=== PATIENT | female | born 1985 | race American Indian/Alaskan Native ===

== ENCOUNTER 2020-08-06 08:02 | Emergency (ER) | payer SELFPAY ==
[2020-08-06 08:30] LABS: Bilirubin,Urine NEG (Negative); Blood,Urine MOD (Negative); Color,Urine Yellow (Yellow); Mucus,Urine 3+ /HPF
--- NOTE | 2020-08-06 08:35 | Emergency Department Report ---
ED Abdominal Pain HPI - General Chief Complaint: Abdominal Pain Stated Complaint: LOWER RT SIDE PAIN Time Seen by Provider: 08/06/20 08:23 Source: patient Mode of arrival: Ambulatory Limitations: No Limitations - History of Present Illness Initial Comments: This is a 35-year-old female with past medical history of endometriosis, uterine fibroids who presents the ER with chief complaint of right-sided flank pain that radiates to the right lower quadrant that has gradually been worsening over the past 6 days. She reports she has had similar pain in the past but has never been this severe. She reports the pain is a 9 out of 10 in severity denies any aggravating or alleviating factors. She has a past surgical history of an appendectomy. She is not currently on any medications but has been taking [id number] Tylenol. She has allergies to penicillin and Levaquin. She denies any associated fever, chills, night sweats, headache, dizziness, blurry vision, nausea, vomiting, diarrhea, chest pain, shortness of breath, weakness or any other associated symptoms. She is currently on her menstrual cycle. She denies any concern about any exposure to STDs and denies any recent unprotected sexual encounters. - Related Data Previous Rx's Medication Instructions Recorded Last Taken Type Ibuprofen [Motrin 800 MG tab] 800 mg PO Q8HR #30 tablet 08/06/20 Unknown Rx Ondansetron [Zofran Odt] 4 mg PO Q8HR #30 tab.rapdis 08/06/20 Unknown Rx traMADoL [Ultram 50 MG tab] 50 mg PO Q4HR PRN #12 tablet 08/06/20 Unknown Rx Allergies Allergy/AdvReac Type Severity Reaction Status Date / Time levofloxacin [From Levaquin] Allergy Swelling Verified 08/06/20 08:05 Penicillins Allergy Hives Verified 08/06/20 08:05 ED Review of Systems ROS: Stated complaint: LOWER RT SIDE PAIN Other details as noted in HPI Comment: All other systems reviewed and negative Constitutional: denies: chills, fever Eyes: denies: eye pain, eye discharge, vision change ENT: denies: ear pain, throat pain Respiratory: denies: cough, shortness of breath, wheezing Cardiovascular: denies: chest pain, palpitations Endocrine: no symptoms reported Gastrointestinal: abdominal pain. denies: nausea, diarrhea Genitourinary: denies: urgency, dysuria, discharge Musculoskeletal: denies: back pain, joint swelling, arthralgia Skin: denies: rash, lesions Neurological: denies: headache, weakness, paresthesias Psychiatric: denies: anxiety, depression Hematological/Lymphatic: denies: easy bleeding, easy bruising ED Past Medical Hx - Past Medical History Previous Medical History?: No - Surgical History Hx Appendectomy: Yes - Social History Smoking Status: Current Every Day Smoker Substance Use Type: None - Medications Home Medications: Home Medications Medication Instructions Recorded Confirmed Last Taken Type Ibuprofen [Motrin 800 MG tab] 800 mg PO Q8HR #30 tablet 08/06/20 Unknown Rx Ondansetron [Zofran Odt] 4 mg PO Q8HR #30 tab.rapdis 08/06/20 Unknown Rx traMADoL [Ultram 50 MG tab] 50 mg PO Q4HR PRN #12 tablet 08/06/20 Unknown Rx ED Physical Exam - General Limitations: No Limitations General appearance: alert, in no apparent distress - Head Head exam: Present: atraumatic, normocephalic - Eye Eye exam: Present: normal appearance, PERRL, EOMI Pupils: Present: normal accommodation - ENT ENT exam: Present: normal exam, normal orophraynx, mucous membranes moist - Neck Neck exam: Present: normal inspection, full ROM. Absent: tenderness, meningismus - Respiratory Respiratory exam: Present: normal lung sounds bilaterally. Absent: respiratory distress, wheezes, rales, rhonchi, stridor, chest wall tenderness - Cardiovascular Cardiovascular Exam: Present: regular rate, normal rhythm, normal heart sounds. Absent: systolic murmur, diastolic murmur, rubs, gallop - GI/Abdominal GI/Abdominal exam: Present: soft, distended, tenderness (Tenderness palpation of the right lower pelvic area. CVA tenderness on the right. No rebound or guarding. Abdomen is soft), normal bowel sounds. Absent: guarding, rebound, rigid - Extremities Exam Extremities exam: Present: normal inspection, full ROM, normal capillary refill. Absent: tenderness - Back Exam Back exam: Present: normal inspection, full ROM, CVA tenderness (R). Absent: tenderness, CVA tenderness (L) - Neurological Exam Neurological exam: Present: alert, oriented X3, normal gait - Psychiatric Psychiatric exam: Present: normal affect, normal mood - Skin Skin exam: Present: warm, dry, intact, normal color. Absent: rash ED Course Vital Signs 08/06/20 08:05 Temperature 98 F Pulse Rate 67 Respiratory 20 Rate Blood Pressure 123/85 O2 Sat by Pulse 100 Oximetry - Reevaluation(s) Reevaluation #1: 08/06/20 11:58 Patient was given IV Toradol and reported significant relief of her symptoms. test was negative. Ultrasound shows a large uterine fibroid. Work-up was otherwise relatively benign. Patient be given outpatient [employer]PECTOR follow-up, anti-inflammatories, pain medication and nausea medication recommended return to the emergency department immediately if develops any change or worsening sy mptoms. She verbalized understand the diagnosis, treatment plan and follow-up instructions and all of her questions were answered. ED Medical Decision Making - Lab Data Result diagrams: 08/06/20 09:37 08/06/20 09:37 Lab Results 08/06/20 08/06/20 08/06/20 Range/Units 09:28 09:37 09:37 WBC 10.2 (4.5-11.0) K/mm3 RBC 4.70 (3.65-5.03) M/mm3 Hgb 14.4 H (10.1-14.3) gm/dl Hct 42.8 (30.3-42.9) % MCV 91 (79-97) fl MCH 31 (28-32) pg MCHC 34 (30-34) % RDW 13.7 (13.2-15.2) % Plt Count 236 (140-440) K/mm3 Lymph % (Auto) 21.3 (13.4-35.0) % [place] % (Auto) 5.5 (0.0-7.3) % Eos % (Auto) 1.8 (0.0-4.3) % Baso % (Auto) 0.7 (0.0-1.8) % Lymph # (Auto) 2.2 (1.2-5.4) K/mm3 [place] # (Auto) 0.6 (0.0-0.8) K/mm3 Eos # (Auto) 0.2 (0.0-0.4) K/mm3 Baso # (Auto) 0.1 (0.0-0.1) K/mm3 Seg Neutrophils % 70.7 H (40.0-70.0) % Seg Neutrophils # 7.2 (1.8-7.7) K/mm3 Sodium 137 (137-145) mmol/L Potassium 4.5 (3.6-5.0) mmol/L Chloride 104.2 (98-107) mmol/L Carbon Dioxide 24 (22-30) mmol/L Anion Gap 13 mmol/L BUN 8 (7-17) mg/dL Creatinine 0.6 (0.6-1.2) mg/dL Estimated GFR > 60 ml/min BUN/Creatinine Ratio 13 % Glucose 85 (65-100) mg/dL Calcium 9.2 (8.4-10.2) mg/dL Total Bilirubin 0.70 (0.1-1.2) mg/dL AST 27 (5-40) units/L ALT 16 (7-56) units/L Alkaline Phosphatase 79 (35-129) units/L Total Protein 7.1 (6.3-8.2) g/dL Albumin 4.0 (3.9-5) g/dL Albumin/Globulin Ratio 1.3 % Urine Color (Yellow) Urine Turbidity (Clear) Urine pH (5.0-7.0) Ur Specific [place] (1.003-1.030) Urine Protein (Negative) mg/dL Urine Glucose (UA) (Negative) mg/dL Urine Ketones (Negative) mg/dL Urine Blood (Negative) Urine Nitrite (Negative) Urine Bilirubin (Negative) Urine Urobilinogen (<2.0) mg/dL Ur Leukocyte Esterase (Negative) Urine WBC (Auto) (0.0-6.0) /HPF Urine RBC (Auto) (0.0-6.0) /HPF U Epithel Cells (Auto) (0-13.0) /HPF Urine Mucus /HPF Urine HCG, Qual Negative (Negative) 08/06/20 Range/Units Unknown WBC (4.5-11.0) K/mm3 RBC (3.65-5.03) M/mm3 Hgb (10.1-14.3) gm/dl Hct (30.3-42.9) % MCV (79-97) fl MCH (28-32) pg MCHC (30-34) % RDW (13.2-15.2) % Plt Count (140-440) K/mm3 Lymph % (Auto) (13.4-35.0) % [place] % (Auto) (0.0-7.3) % Eos % (Auto) (0.0-4.3) % Baso % (Auto) (0.0-1.8) % Lymph # (Auto) (1.2-5.4) K/mm3 [place] # (Auto) (0.0-0.8) K/mm3 Eos # (Auto) (0.0-0.4) K/mm3 Baso # (Auto) (0.0-0.1) K/mm3 Seg Neutrophils % (40.0-70.0) % Seg Neutrophils # (1.8-7.7) K/mm3 Sodium (137-145) mmol/L Potassium (3.6-5.0) mmol/L Chloride (98-107) mmol/L Carbon Dioxide (22-30) mmol/L Anion Gap mmol/L BUN (7-17) mg/dL Creatinine (0.6-1.2) mg/dL Estimated GFR ml/min BUN/Creatinine Ratio % Glucose (65-100) mg/dL Calcium (8.4-10.2) mg/dL Total Bilirubin (0.1-1.2) mg/dL AST (5-40) units/L ALT (7-56) units/L Alkaline Phosphatase (35-129) units/L Total Protein (6.3-8.2) g/dL Albumin (3.9-5) g/dL Albumin/Globulin Ratio % Urine Color Yellow (Yellow) Urine Turbidity Clear (Clear) Urine pH 6.0 (5.0-7.0) Ur Specific [place] 1.024 (1.003-1.030) Urine Protein 30 mg/dl (Negative) mg/dL Urine Glucose (UA) Neg (Negative) mg/dL Urine Ketones Tr (Negative) mg/dL Urine Blood Mod (Negative) Urine Nitrite Neg (Negative) Urine Bilirubin Neg (Negative) Urine Urobilinogen 4.0 (<2.0) mg/dL Ur Leukocyte Esterase Neg (Negative) Urine WBC (Auto) 1.0 (0.0-6.0) /HPF Urine RBC (Auto) 81.0 (0.0-6.0) /HPF U Epithel Cells (Auto) 3.0 (0-13.0) /HPF Urine Mucus 3+ /HPF Urine HCG, Qual (Negative) - Radiology Data Radiology results: report reviewed Ordering Physician: CHANDRA MIRANDA Date of Service: 08/06/20 Procedure(s): US transvaginal Accession Number(s): [id number] cc: CHANDRA MIRANDA Transvaginal pelvic ultrasound Transabdominal pelvic ultrasound INDICATION: Right lower quadrant pain FINDINGS: There is a prominent fibroid along the posterior aspect of the uterus near the fundus measuring 4.2 x 3.9 x 4.1 cm. Endometrium measures 3 mm. Right ovary measures 2.9 x 2.3 x 3.0 cm. Left ovary measures 1.8 x 1.7 x 1.8 cm. Mild increased flow within the uterine fibroid. IMPRESSION: Uterine fibroid. Signer Name: Danny King MD Signed: 08/06/2020 9:32 AM Workstation Name: [id number] Transcribed By: HARRY Dictated By: MAULIK KING MD Electronically Authenticated By: MAULIK KING MD Signed Date/Time: 08/06/20 0932 - Medical Decision Making Patient nontoxic in no acute distress. Vital signs are stable. She is hemodynamically stable and in no acute distress. Imaging consistent with ut erine fibroid. Pain medication improves her symptoms. Recommend outpatient follow-up with an [employer]ATCH [employer] INSPECTOR return to the emerge department any change or worsening symptoms. She did have some blood in her urine however she is currently menstruating. I am less concerned about a kidney stone at this time due to the lack of sudden onset of symptoms or colicky symptoms and the fact that her symptoms have been more gradual with onset of her menstrual cycle makes me think this is more of a pelvic related pain. Patient declined pelvic examination is not concerned about any exposure to STDs making my suspicion for PID or TOA less likely. - Differential Diagnosis Uterine fibroid, endometrioma, ovarian cyst, dysmenorrhea Critical care attestation.: If time is entered above; I have spent that time in minutes in the direct care of this critically ill patient, excluding procedure time. ED Disposition Clinical Impression: Dysmenorrhea Uterine fibroid Qualifiers: Uterine leiomyoma location: unspecified location Qualified Code(s): D25.9 - Leiomyoma of uterus, unspecified Disposition: DC- TO HOME OR SELFCARE Is pt being admited?: No Condition: Stable Instructions: Abdominal Pain (ED), Uterine Fibroids, Nuse-ct-[id number] Prescriptions: Ibuprofen [Motrin 800 MG tab] 800 mg PO Q8HR #30 tablet traMADoL [Ultram 50 MG tab] 50 mg PO Q4HR PRN #12 tablet PRN Reason: Pain Ondansetron [Zofran Odt] 4 mg PO Q8HR #30 tab.rapdis Referrals: PRIMARY CARE, [Primary Care Provider] - 3-5 Days JESSIKA HURTADO MD [Staff Physician] - 3-5 Days Forms: Work/School Release Form(ED) Time of Disposition: 12:00
--- NOTE | 2020-08-06 09:37 | Ultrasound Report ---
Transvaginal pelvic ultrasound Transabdominal pelvic ultrasound INDICATION: Right lower quadrant pain FINDINGS: There is a prominent fibroid along the posterior aspect of the uterus near the fundus measu ring 4.2 x 3.9 x 4.1 cm. Endometrium measures 3 mm. Right ovary measures 2.9 x 2.3 x 3.0 cm. Left ova ry measures 1.8 x 1.7 x 1.8 cm. Mild increased flow within the uterine fibroid. IMPRESSION: Uterine fibroid. Signer Name: Danny King MD Signed: 08/06/2020 9:32 AM Workstation Name: [id number]
[2020-08-06 09:59] LABS: Basophils # (Auto) 0.1 K/mm3 (0.0-0.1); Basophils % (Auto) 0.7 % (0.0-1.8); Eosinophils # (Auto) 0.2 K/mm3 (0.0-0.4); Eosinophils % (Auto) 1.8 % (0.0-4.3); Hematocrit 42.8 % (30.3-42.9); Hemoglobin 14.4 gm/dl (10.1-14.3); Lymphocytes # (Auto) 2.2 K/mm3 (1.2-5.4); Lymphocytes % (Auto) 21.3 % (13.4-35.0); Mean Corpuscular HGB Conc 34 % (30-34); Mean Corpuscular Volume 91 fl (79-97); Monocytes # (Auto) 0.6 K/mm3 (0.0-0.8); Monocytes % (Auto) 5.5 % (0.0-7.3); Platelet Count 236 K/mm3 (140-440); Red Cell Distribution Width 13.7 % (13.2-15.2)
[2020-08-06 10:20] LABS: Alanine Aminotransferase 16 units/L (7-56); Blood Urea Nitrogen 8 mg/dL (7-17); Calcium 9.2 mg/dL (8.4-10.2); Hemolysis Index 77
[2020-08-06 10:21] LABS: BUN/Creatinine Ratio 13
[2020-08-06 10:50] LABS: HCG Qualitative,Urine Negative (Negative)
[2020-08-06] MEDS ORDERED: KETOROLAC 30 MG/1 ML INJ IV ONE (10:50)
[2020-08-06 12:16] VITALS: BP 137/83
== END 2020-08-06 12:17 | disposition home or self-care (01) ==
LOC: ED 08:02
DX: D25.9 Leiomyoma of uterus, unspecified (principal); N94.6 Dysmenorrhea, unspecified; F17.200 Nicotine dependence, unspecified, uncomplicated; Z79.899 Other long term (current) drug therapy; Z88.0 Allergy status to penicillin; Z88.8 Allergy status to other drugs, medicaments and biological substances; Z90.49 Acquired absence of other specified parts of digestive tract
CPT/HCPCS: 36415; 76830; 76856; 80053; 81001; 81025; 85025; 96374; 99284; J1885

== ENCOUNTER 2020-08-20 11:45 | Emergency (ER) | payer SELFPAY ==
[2020-08-20 11:59] VITALS: BP 119/82
--- NOTE | 2020-08-20 12:34 | Event Note ---
ED Screening Note Date of service: 08/20/20 Time: 12:32 ED Screening Note: 35-year-old female patient presents to the emergency department with complaints of dizziness and lightheadedness starting 2 days ago. Patient states she experienced a syncopal episode while she was at work. She was evaluated at another local emergency department and given 2 L of IV fluids. Diagnostic work- up was unremarkable and she was discharged home to rest/hydrate. She stayed home yesterday and follow discharge instructions. However, when she attempted to return to work today, she began to experience prodromal symptoms again. No preceding fall, trauma, or injury. No family history of sudden cardiac . Patient also reports lower back/rectal/right-sided abdominal pain radiating into her right leg; this has been ongoing for >1 month. States the pain is no different today than usual. Review past medical records indicates she underwent sonographic evaluation at our facility last month and was diagnosed with uterine fibroids. Last menstrual period 08/09/2020. General: Awake, appropriately interactive, no acute distress. Neck: Supple. Full range of motion intact. Cardiovascular: Normal peripheral perfusion. Pulmonary: No respiratory distress. Patient is speaking normally without use of accessory muscles. Skin: No apparent rashes or lesions. Neurological: No facial asymmetry. Speech is clear. Follows commands. Patient is alert and oriented. Musculoskeletal: Moves all four extremities spontaneously with normal range of motion. Psych: Cooperative. Appropriate mood and affect. I have greeted and performed a focused rapid initial assessment of this patient. A comprehensive ED assessment and evaluation of the patient, analysis of all test results, and completion of the medical decision-making process will be conducted by additional ED providers. This initial assessment/diagnostic orders/clinical plan/treatment(s) is/are subject to change based on patients health status, clinical progression and re-assessment. Further treatment and workup at subsequent clinical provider's discretion. Patient/guardian urged not to elope from the ED as their condition may be serious if not clinically assessed and managed.
[2020-08-20] MEDS ORDERED: MECLIZINE 25 MG TAB PO ONE (13:16)
--- NOTE | 2020-08-20 13:16 | Emergency Department Report ---
ED Dizziness HPI - General Chief Complaint: Rectal Pain Stated Complaint: DIZZY/WEAK/RT LEG/HIP PAIN Time Seen by Provider: 08/20/20 12:56 Source: patient Mode of arrival: Ambulatory Limitations: No Limitations - History of Present Illness Initial Comments: Patient is a 35-year-old female that comes to the ER today from work after having a near syncopal spell. She states that she did have a syncopal spell on Tuesday and was taken to [facility]. She states that she had blood work urine work EKGs and they told her everything was normal that she just needed to hydrate well. They did not scan her head. Patient denies any trauma or fall with the syncopal spell. She was at [email or web address] working again today and had a near syncopal spell. It concerned her team manager so they sent her here to the emergency room. Patient is ambulatory to the ER in no acute distress. Patient denies any chest pain or shortness of breath-or palpitations. She denies fever or chills. She denies any exposure to COVID-19. Patient denies any alcohol or drugs to provider. However EMR indicates she does use alcohol and marijuana.. She does endorse cigarette smoking. Last menstrual period 320 Patient denied any leg pain on my exam. She is ambulatory without difficulty. Complaint: dizziness -: Sudden, days(s) Timing: sudden onset Description: "room spinning" History of Same: Yes History of Trauma: No Severity: mild Improves With: remaining still Worsens With: movement Associated Symptoms: denies other symptoms - Related Data Previous Rx's Medication Instructions Recorded Last Taken Type Meclizine [Antivert] 25 mg PO TID PRN #12 tablet 08/20/20 Unknown Rx Sulfamethoxazole/Trimethoprim 1 each PO BID #10 tablet 08/20/20 Unknown Rx [Bactrim DS TAB] Allergies Allergy/AdvReac Type Severity Reaction Status Date / Time levofloxacin [From Levaquin] Allergy Swelling Verified 08/06/20 08:05 Penicillins Allergy Hives Verified 08/06/20 08:05 ED Review of Systems ROS: Stated complaint: DIZZY/WEAK/RT LEG/HIP PAIN Other details as noted in HPI Comment: All other systems reviewed and negative ED Past Medical Hx - Past Medical History Previous Medical History?: Yes Additional medical history: Endometriosis - Surgical History Past Surgical History?: Yes Hx Appendectomy: Yes (appy) - Family History Family history: no significant - Social History Smoking Status: Current Every Day Smoker Substance Use Type: Alcohol, Marijuana - Medications Home Medications: Home Medications Medication Instructions Recorded Confirmed Last Taken Type Meclizine [Antivert] 25 mg PO TID PRN #12 tablet 08/20/20 Unknown Rx Sulfamethoxazole/Trimethoprim 1 each PO BID #10 tablet 08/20/20 Unknown Rx [Bactrim DS TAB] ED Physical Exam - General Limitations: No Limitations General appearance: alert, in no apparent distress - Head Head exam: Present: atraumatic, normocephalic - Eye Eye exam: Present: normal appearance Pupils: Present: other (Patient has dizziness with rapid head movement to the right and to the left. It is worse with movement to the left. Vertical nystagmus on exam. Minimal nausea. No vomiting.) - ENT ENT exam: Present: mucous membranes moist - Neck Neck exam: Present: normal inspection - Respiratory Respiratory exam: Present: normal lung sounds bilaterally. Absent: respiratory distress - Cardiovascular Cardiovascular Exam: Present: regular rate, normal rhythm. Absent: systolic murmur, diastolic murmur, rubs, gallop - GI/Abdominal GI/Abdominal exam: Present: soft, normal bowel sounds - Extremities Exam Extremities exam: Present: normal inspection - Back Exam Back exam: Present: normal inspection - Neurological Exam Neurological exam: Present: alert, oriented X3 - Psychiatric Psychiatric exam: Present: normal affect, normal mood - Skin Skin exam: Present: warm, dry, intact, normal color. Absent: rash ED Course Vital Signs 08/20/20 11:55 Temperature 98.8 F Pulse Rate 89 Respiratory 16 Rate Blood Pressure 119/82 O2 Sat by Pulse 99 Oximetry ED Medical Decision Making - Lab Data Result diagrams: 08/20/20 12:36 08/20/20 12:36 - Radiology Data Radiology results: report reviewed, image reviewed - Medical Decision Making Lab Results 08/20/20 08/20/20 08/20/20 Range/Units 12:36 12:36 Unknown WBC 11.0 (4.5-11.0) K/mm3 RBC 4.95 (3.65-5.03) M/mm3 Hgb 14.9 H (10.1-14.3) gm/dl Hct 45.5 H (30.3-42.9) % MCV 92 (79-97) fl MCH 30 (28-32) pg MCHC 33 (30-34) % RDW 13.8 (13.2-15.2) % Plt Count 250 (140-440) K/mm3 Lymph % (Auto) 24.6 (13.4-35.0) % [place] % (Auto) 5.8 (0.0-7.3) % Eos % (Auto) 1.1 (0.0-4.3) % Baso % (Auto) 0.4 (0.0-1.8) % Lymph # (Auto) 2.7 (1.2-5.4) K/mm3 [place] # (Auto) 0.6 (0.0-0.8) K/mm3 Eos # (Auto) 0.1 (0.0-0.4) K/mm3 Baso # (Auto) 0.0 (0.0-0.1) K/mm3 Seg Neutrophils % 68.1 (40.0-70.0) % Seg Neutrophils # 7.5 (1.8-7.7) K/mm3 Sodium 135 L (137-145) mmol/L Potassium 3.3 L (3.6-5.0) mmol/L Chloride 98.7 (98-107) mmol/L Carbon Dioxide 26 (22-30) mmol/L Anion Gap 14 mmol/L BUN 8 (7-17) mg/dL Creatinine 0.7 (0.6-1.2) mg/dL Estimated GFR > 60 ml/min BUN/Creatinine Ratio 11 % Glucose 79 (65-100) mg/dL Calcium 9.3 (8.4-10.2) mg/dL Magnesium 1.80 (1.7-2.3) mg/dL Total Bilirubin 0.60 (0.1-1.2) mg/dL AST 22 (5-40) units/L ALT 16 (7-56) units/L Alkaline Phosphatase 77 (35-129) units/L Total Protein 7.2 (6.3-8.2) g/dL Albumin 4.3 (3.9-5) g/dL Albumin/Globulin Ratio 1.5 % Urine Color [place] (Yellow) Urine Turbidity Cloudy (Clear) Urine pH 6.0 (5.0-7.0) Ur Specific [place] 1.024 (1.003-1.030) Urine Protein 100 mg/dl (Negative) mg/dL Urine Glucose (UA) Neg (Negative) mg/dL Urine Ketones 20 (Negative) mg/dL Urine Blood Neg (Negative) Urine Nitrite Neg (Negative) Ur Reducing Substances Not Reportable Urine Bilirubin Neg (Negative) Urine Ictotest Not Reportable Urine Urobilinogen 2.0 (<2.0) mg/dL Ur Leukocyte Esterase Tr (Negative) Urine WBC (Auto) 14.0 H (0.0-6.0) /HPF Urine RBC (Auto) 6.0 (0.0-6.0) /HPF U Epithel Cells (Auto) 46.0 H (0-13.0) /HPF Urine Mucus 3+ /HPF Urine HCG, Qual Negative (Negative) Vital Signs 08/20/20 11:55 Temperature 98.8 F Pulse Rate 89 Respiratory 16 Rate Blood Pressure 119/82 O2 Sat by Pulse 99 Oximetry Labs noted. EKG noted. Sinus rhythm. UA noted. Culture pending. Patient being started on Bactrim. Patient denies any vaginal discharge or dysuria. She denies suprapubic pain. She denies back pain. She has no CVA tenderness. I think this is an incidental finding. Patient given a dose of Antivert with Relief. Patient states that pollen does not normally aggravate her at this time a year. She denies ever being told she had vertigo before. I am able to replicate her dizziness with exam. CT of head. See report. Patient given potassium supplementation. Patient being discharged home with discharge plan of care. She verbalizes understanding of medications, activity diet and follow-up. - Differential Diagnosis ro intracerebral etio/trauma/vertigo Critical care attestation.: If time is entered above; I have spent that time in minutes in the direct care of this critically ill patient, excluding procedure time. ED Disposition Clinical Impression: UTI (urinary tract infection), Vertigo, Hypokalemia Disposition: DC-01 TO HOME OR SELFCARE Is pt being admited?: No Does the pt Need Aspirin: No Condition: Stable Instructions: Urinary Tract Infection, Adult, Dizziness, [id number] Additional Instructions: stay well hydrated meds as ordered FOLLOW UP WITH PCP IN 1 WEEK REFERRAL BELOW Eat foods rich in potassium Prescriptions: Meclizine [Antivert] 25 mg PO TID PRN #12 tablet PRN Reason: Vertigo Sulfamethoxazole/Trimethoprim [Bactrim DS TAB] 1 each PO BID #10 tablet Referrals: PRIMARY CAREMD [Primary Care Provider] - 3-5 Days JACOBY CONTRERAS MD [Staff Physician] - 3-5 Days Forms: Work/School Release Form(ED) Time of Disposition: 15:28
[2020-08-20 13:31] LABS: Alanine Aminotransferase 16 units/L (7-56); Albumin 4.3 g/dL (3.9-5); Blood Urea Nitrogen 8 mg/dL (7-17); Calcium 9.3 mg/dL (8.4-10.2); Hemolysis Index 7
[2020-08-20 13:44] LABS: Basophils % (Auto) 0.4 % (0.0-1.8); Eosinophils # (Auto) 0.1 K/mm3 (0.0-0.4); Eosinophils % (Auto) 1.1 % (0.0-4.3); Hematocrit 45.5 % (30.3-42.9); Hemoglobin 14.9 gm/dl (10.1-14.3); Lymphocytes # (Auto) 2.7 K/mm3 (1.2-5.4); Lymphocytes % (Auto) 24.6 % (13.4-35.0); Mean Corpuscular HGB Conc 33 % (30-34); Mean Corpuscular Volume 92 fl (79-97); Monocytes # (Auto) 0.6 K/mm3 (0.0-0.8); Monocytes % (Auto) 5.8 % (0.0-7.3); Platelet Count 250 K/mm3 (140-440); Red Blood Count 4.95 M/mm3 (3.65-5.03); Red Cell Distribution Width 13.8 % (13.2-15.2)
[2020-08-20 13:45] LABS: BUN/Creatinine Ratio 11
[2020-08-20 15:03] LABS: HCG Qualitative,Urine Negative (Negative)
[2020-08-20 15:06] LABS: Bilirubin,Urine NEG (Negative); Blood,Urine NEG (Negative); Color,Urine Amber (Yellow); Mucus,Urine 3+ /HPF
[2020-08-20] MEDS ORDERED: SULFAMETHOXAZOLE/TRIMETHOPRIM 800/160MG DS TAB PO ONE (15:26)
[2020-08-20] MEDS ORDERED: POTASSIUM CHLORIDE ER 20 MEQ TAB PO ONE (15:27)
--- NOTE | 2020-08-20 15:36 | Cat Scan Report ---
CT head/brain wo con INDICATION: dizzy. TECHNIQUE: Routine CT head. All CT scans at this location are performed using CT dose reduction for A YARITZA by means of automated exposure control. COMPARISON: None. FINDINGS: Intracranial: Cardoso-white matter differentiation is maintained. No intracranial hemorrhage. No extra a xial collection. No hydrocephalus. No herniation. Right greater than left downward descent of the cer ebellar tonsils beneath the foramen magnum. This measures up to 5 mm on the right. The morphology of the right subareolar tonsil appears mildly pointed. Sinuses: Paranasal sinuses and mastoid air cells are essentially clear. Orbits: Globes are intact. Calvarium: No acute fracture. IMPRESSION: 1. No acute intracranial abnormality. 2. 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 Signer Name: Don Lobo MD Signed: 08/20/2020 3:32 PM Workstation Name: [facility]At[facility]
== END 2020-08-20 15:53 | disposition home or self-care (01) ==
LOC: ED 11:45
DX: E87.6 Hypokalemia (principal); N39.0 Urinary tract infection, site not specified; R42 Dizziness and giddiness; F17.200 Nicotine dependence, unspecified, uncomplicated; F12.90 Cannabis use, unspecified, uncomplicated; Z79.899 Other long term (current) drug therapy; Z88.0 Allergy status to penicillin; Z88.8 Allergy status to other drugs, medicaments and biological substances; Z90.49 Acquired absence of other specified parts of digestive tract
CPT/HCPCS: 36415; 70450; 80053; 81001; 81025; 83735; 85025; 87076; 87086; 87186

== ENCOUNTER 2021-11-02 10:05 | Emergency (ER) | payer SELFPAY ==
[2021-11-02] MEDS ORDERED: ACETAMINOPHEN 500 MG TAB PO ONE (11:07)
[2021-11-02] MEDS ORDERED: FAMOTIDINE 20 MG TAB PO ONE (11:07)
[2021-11-02] MEDS ORDERED: ONDANSETRON 4 MG ODT TAB PO ONE (11:07)
[2021-11-02] MEDS ORDERED: SODIUM CHLORIDE 0.9% 1000 ML 1,000 ML IV ONE (11:22)
[2021-11-02] MEDS ORDERED: FAMOTIDINE 20 MG/2 ML INJ IV ONE (11:22)
[2021-11-02] MEDS ORDERED: ONDANSETRON 4 MG/2 ML INJ IV ONE (11:22)
[2021-11-02] MEDS ORDERED: MORPHINE 4 MG/1 ML INJ IV ONE (11:22)
[2021-11-02 11:54] LABS: Basophils # (Auto) 0.1 K/mm3 (0.0-0.1); Basophils % (Auto) 0.5 % (0.0-1.8); Eosinophils % (Auto) 0.3 % (0.0-4.3); Hemoglobin 14.7 gm/dl (10.1-14.3); Lymphocytes # (Auto) 1.8 K/mm3 (1.2-5.4); Lymphocytes % (Auto) 16.2 % (13.4-35.0); Mean Corpuscular HGB Conc 33 % (30-34); Mean Corpuscular Volume 92 fl (79-97); Monocytes # (Auto) 0.7 K/mm3 (0.0-0.8); Monocytes % (Auto) 6.3 % (0.0-7.3); Platelet Count 228 K/mm3 (140-440); Red Cell Distribution Width 13.7 % (13.2-15.2)
[2021-11-02 12:13] LABS: Alanine Aminotransferase 17 units/L (7-56); Albumin 4.1 g/dL (3.9-5); Blood Urea Nitrogen 11 mg/dL (7-17); Calcium 9.4 mg/dL (8.4-10.2); Hemolysis Index 54
[2021-11-02 12:16] LABS: BUN/Creatinine Ratio 16
[2021-11-02 14:27] LABS: HCG Qualitative,Urine Negative (Negative)
[2021-11-02 14:33] LABS: Color,Urine Amber (Yellow)
[2021-11-02 14:34] LABS: Bilirubin,Urine Small (Negative); Blood,Urine Large (Negative); PH,Urine 6.5 (5.0-7.0)
[2021-11-02 14:35] LABS: Urobilinogen,Urine < 2.0 mg/dL (<2.0)
[2021-11-02 14:39] LABS: Ictotest,Urine Negative (Negative)
[2021-11-02 15:18] LABS: Mucus,Urine 2+ /HPF; RBC,Urine > 182.0 /HPF (0.0-6.0)
--- NOTE | 2021-11-02 16:20 | Cat Scan Report ---
CT ABDOMEN AND PELVIS WITH INTRAVENOUS CONTRAST INDICATION / CLINICAL INFORMATION: RLQ abdominal pain. TECHNIQUE: 100 cc Omnipaque [address] scans at this location are performed using CT d ose reduction for ALARA by means of automated exposure control. COMPARISON: None available. FINDINGS: ABDOMEN: The liver measures 14.8 cm in length and demonstrates mild diffuse fatty infiltration withou t focal lesion. The gallbladder, bile ducts, pancreas, spleen, adrenal glands and kidneys are normal. I see no evidence of bowel obstruction, wall thickening or free air. No vascular abnormality is pres ent. No adenopathy is seen. The lung bases are clear. PELVIS: The distal ureters and urinary bladder are normal. There is a 5 cm fibroid in the uterine bod y on the right. There is trace free fluid in the cul-de-sac. I do not identify an adnexal mass. The a ppendix is not seen and there is no evidence of diverticulitis. I do not identify a hernia. There is mild spondylosis. There is a 2 cm benign fibro-osseous lesion in the intertrochanteric regio n of the right femur. There are mild degenerative changes involving the right hip joint. IMPRESSION: 1. No acute abnormality is identified. There is no CT evidence of acute appendicitis. 2. Trace free fluid in the cul-de-sac is probably physiologic. 5 cm fibroid in the right uterine body . 3. Mild diffuse fatty infiltration of the liver. Signer Name: Lior Roman MD Signed: 11/02/2021 4:16 PM Workstation Name: [id number]
--- NOTE | 2021-11-02 16:50 | Emergency Department Report ---
ED Abdominal Pain HPI - General Chief Complaint: Abdominal Pain Stated Complaint: ABD PAIN/BACK Source: patient, EMS Mode of arrival: Stretcher Limitations: No Limitations - History of Present Illness Initial Comments: Patient is a 36-year-old -[place] female with a history of chronic endometriosis and uterine fibroids who presents to the ED with complaint of acute onset persistent diffuse low abdominal pain with nausea and vomiting for the last 1 week, worse in the last 2 days. Patient states that she has not been able to keep anything down because of intractable nausea and vomiting and worsening diffuse lower abdominal pain. Patient denies fever, chills, diarrhea, dysuria, urinary frequency and urgency, vaginal discharge, vaginal bleeding, low back pain, chest pain or shortness of breath, or headache, dizziness, lightheadedness or syncope. MD Complaint: abdominal pain (diffuse lower; nausea and vomiting) -: Gradual, week(s) (1) Location: LLQ, RLQ, suprapubic Radiation: LLQ, RLQ, suprapubic Migration to: no migration Severity: severe Severity scale (0 -10): 10 Quality: cramping, aching, sharp Consistency: constant Improves With: nothing Worsens With: vomiting, movement Context: other (Chronic uterine fibroids and endometriosis) Associated Symptoms: denies other symptoms, nausea, vomiting. denies: diarrhea, chills, dysuria, hematemesis, hematochezia, melena, hematuria, syncope - Related Data Previous Rx's Medication Instructions Recorded Last Taken Type Meclizine [Antivert] 25 mg PO TID PRN #12 tablet 08/20/20 Unknown Rx Sulfamethoxazole/Trimethoprim 1 each PO BID #10 tablet 08/20/20 Unknown Rx [Bactrim DS TAB] Ibuprofen [Motrin] 800 mg PO Q8HR PRN #30 tablet 11/02/21 Unknown Rx Ondansetron [Zofran Odt] 4 mg PO Q8HR #20 tab.rapdis 11/02/21 Unknown Rx traMADoL [Ultram] 50 mg PO Q6HR PRN #12 tablet 11/02/21 Unknown Rx Allergies Allergy/AdvReac Type Severity Reaction Status Date / Time levofloxacin [From Levaquin] Allergy Swelling Verified 08/06/20 08:05 Penicillins Allergy Hives Verified 08/06/20 08:05 ED Review of Systems ROS: Stated complaint: ABD PAIN/BACK Other details as noted in HPI Constitutional: denies: chills, fever Eyes: denies: eye pain, eye discharge, vision change ENT: denies: ear pain, throat pain Respiratory: denies: cough, shortness of breath, wheezing Cardiovascular: denies: chest pain, palpitations Endocrine: no symptoms reported Gastrointestinal: abdominal pain (Lower abdominal pain), nausea, vomiting. denies: diarrhea Genitourinary: denies: urgency, dysuria, discharge Musculoskeletal: denies: back pain, joint swelling, arthralgia Skin: denies: rash, lesions Neurological: denies: headache, weakness, paresthesias Psychiatric: denies: anxiety, depression Hematological/Lymphatic: denies: easy bleeding, easy bruising ED Past Medical Hx - Past Medical History Previous Medical History?: Yes Additional medical history: Uterine fibroids; endometriosis - Surgical History Hx Appendectomy: Yes (appy) - Social History Smoking Status: Never Smoker Substance Use Type: None - Medications Home Medications: Home Medications Medication Instructions Recorded Confirmed Last Taken Type Meclizine [Antivert] 25 mg PO TID PRN #12 tablet 08/20/20 Unknown Rx Sulfamethoxazole/Trimethoprim 1 each PO BID #10 tablet 08/20/20 Unknown Rx [Bactrim DS TAB] Ibuprofen [Motrin] 800 mg PO Q8HR PRN #30 tablet 11/02/21 Unknown Rx Ondansetron [Zofran Odt] 4 mg PO Q8HR #20 tab.rapdis 11/02/21 Unknown Rx traMADoL [Ultram] 50 mg PO Q6HR PRN #12 tablet 11/02/21 Unknown Rx ED Physical Exam - General Limitations: No Limitations General appearance: alert, in no apparent distress - Head Head exam: Present: atraumatic, normocephalic - Eye Eye exam: Present: normal appearance, PERRL, EOMI Pupils: Present: normal accommodation - ENT ENT exam: Present: normal exam, normal orophraynx, mucous membranes moist, TM's normal bilaterally, normal external ear exam - Neck Neck exam: Present: normal inspection, full ROM. Absent: tenderness - Respiratory Respiratory exam: Present: normal lung sounds bilaterally. Absent: respiratory distress, wheezes, rales, rhonchi, chest wall tenderness, accessory muscle use, decreased breath sounds - Cardiovascular Cardiovascular Exam: Present: normal rhythm, bradycardia, normal heart sounds. Absent: systolic murmur, diastolic murmur, rubs, gallop - GI/Abdominal GI/Abdominal exam: Present: soft, tenderness (Palpable suprapubic tenderness), normal bowel sounds. Absent: guarding, rebound, hyperactive bowel sounds, hypoactive bowel sounds, organomegaly, mass, pulsatile mass - Bi-manual exam: Present: other (Pelvic exam deferred at this time) - Extremities Exam Extremities exam: Present: normal inspection, full ROM, normal capillary refill - Back Exam Back exam: Present: normal inspection, full ROM. Absent: tenderness, CVA tenderness (R), CVA tenderness (L), muscle spasm, paraspinal tenderness, vertebral tenderness - Neurological Exam Neurological exam: Present: alert, oriented X3, CN II-XII intact, normal gait, reflexes normal - Psychiatric Psychiatric exam: Present: normal affect, normal mood - Skin Skin exam: Present: warm, dry, intact, normal color. Absent: rash ED Medical Decision Making - Lab Data Result diagrams: 11/02/21 11:36 11/02/21 11:36 - Radiology Data Radiology results: report reviewed, image reviewed [facility] [address] [place] [address] Cat Scan Report Signed Patient: ANN MARTIN MR#: [id number] : 1985 Acct:[id number] Age/Sex: 36 / F ADM Date: 11/02/21 Loc: ED Attending Dr: Ordering Physician: CHANDRA BROWN Date of Service: 11/02/21 Procedure(s): CT abdomen pelvis w con Accession Number(s): [id number] cc: CHANDRA BROWN CT ABDOMEN AND PELVIS WITH INTRAVENOUS CONTRAST INDICATION / CLINICAL INFORMATION: RLQ abdominal pain. TECHNIQUE: 100 cc Omnipaque [address] scans at this location are performed using CT dose reduction for ALARA by means of automated exposure control. COMPARISON: None available. FINDINGS: ABDOMEN: The liver measures 14.8 cm in length and demonstrates mild diffuse fatty infiltration without focal lesion. The gallbladder, bile ducts, pancreas, spleen, adrenal glands and kidneys are normal. I see no evidence of bowel obstruction, wall thickening or free air. No vascular abnormality is present. No adenopathy is seen. The lung bases are clear. PELVIS: The distal ureters and urinary bladder are normal. There is a 5 cm fibroid in the uterine body on the right. There is trace free fluid in the cul-de-sac. I do not identify an adnexal mass. The appendix is not seen and there is no evidence of diverticulitis. I do not identify a hernia. There is mild spondylosis. There is a 2 cm benign fibro-osseous lesion in the intertrochanteric region of the right femur. There are mild degenerative changes involving the right hip joint. IMPRESSION: 1. No acute abnormality is identified. There is no CT evidence of acute appendicitis. 2. Trace free fluid in the cul-de-sac is probably physiologic. 5 cm fibroid in the right uterine body. 3. Mild diffuse fatty infiltration of the liver. Signer Name: Lior Roman MD Signed: 11/02/2021 4:16 PM Workstation Name: [id number] Transcribed By: RT Dictated By: Lior Roman MD Electronically Authenticated By: Lior Roman MD Signed Date/Time: 11/02/21 1616 DD/ 07 TD/TT: - Medical Decision Making This is a 36-year-old -[place] female with a history of chronic endo metriosis and uterine fibroids who presents to the ED with complaint of acute onset persistent diffuse low abdominal pain with nausea and vomiting for the last 1 week, worse in the last 2 days. Patient states that she has not been able to keep anything down because of intractable nausea and vomiting and worsening diffuse lower abdominal pain. In the ED, patient is alert and oriented x3 and is not in any distress but appears to be in pain. Patient was treated for pain in the ED and also given antiemetics and normal saline 1 L IV bolus x1. Abdomen pelvis CT scan with IV contrast showed no acute abnormalities but chronic uterine fibroids. On reevaluation, patient's pain is well controlled with medications. Patient was discharged home on pain medications and antiemetics and advised to follow-up with her primary care physician or [facility] physician in 5 to 7 days for reevaluation or return to the ED immediately if symptoms get worse. - Differential Diagnosis Uterine fibroids; ovarian cyst; UTI; appendicitis; diverticulitis; colitis; Critical care attestation.: If time is entered above; I have spent that time in minutes in the direct care of this critically ill patient, excluding procedure time. ED Disposition Clinical Impression: Abdominal pain in female patient, Nausea and vomiting in adult patient Uterine fibroid Qualifiers: Uterine leiomyoma location: unspecified location Qualified Code(s): D25.9 - Leiomyoma of uterus, unspecified Disposition: HOME / SELF CARE / HOMELESS Is pt being admited?: No Does the pt Need Aspirin: No Condition: Stable Instructions: Abdominal Pain (ED), Uterine Fibroids, [id number], Abdominal Pain, Adult, [id number], Nausea and Vomiting, Adult, [id number] Additional Instructions: All lab test results were reviewed and are all nonactionable. Abdomen pelvis CT scan with IV contrast showed no acute abnormalities except for chronic uterine fibroids. Therefore take medication with food, drink plenty of fluids, follow- up with your [facility] TECHNIC[facility] physician in 5 to 7 days for reevaluation or return to the ED immediately if symptoms get worse. Prescriptions: Ibuprofen [Motrin] 800 mg PO Q8HR PRN #30 tablet PRN Reason: Pain , Severe (7-10) traMADoL [Ultram] 50 mg PO Q6HR PRN #12 tablet PRN Reason: Pain Ondansetron [Zofran Odt] 4 mg PO Q8HR #20 tab.rapdis Referrals: [facility] [Provider Group] - 3-5 Days JOSEPH CAMPA MD [Staff Physician] - 3-5 Days Forms: Work/School Release Form(ED) Time of Disposition: 16:54 Print Language: AMERICAN
[2021-11-02 16:54] VITALS: BP 125/80
== END 2021-11-02 18:27 | disposition home or self-care (01) ==
LOC: ED 10:05
DX: R11.2 Nausea with vomiting, unspecified (principal); R10.31 Right lower quadrant pain; R10.32 Left lower quadrant pain; R10.2 Pelvic and perineal pain; D25.9 Leiomyoma of uterus, unspecified; Z90.89 Acquired absence of other organs; Z88.0 Allergy status to penicillin; Z88.1 Allergy status to other antibiotic agents
CPT/HCPCS: 36415; 74177; 80053; 81001; 81025; 83690; 85025; 96374; 96375; 99284; J2270; J2405; J3490; J7030; Q9967; Q0162